=== PATIENT | female | born 1955 | race Caucasian/White ===

== ENCOUNTER 2023-06-08 21:27 | Emergency (ER) | payer MEDICARE, OTHER ==
[2023-06-08] MEDS ORDERED: Aspirin 81 MG Tab.Chew PO ONE (21:37)
[2023-06-08] MEDS ORDERED: Sodium Chloride 0.9% 10 ML Syringe FLUSH PRN (21:37)
[2023-06-08] MEDS ORDERED: Ondansetron 4 MG/2 ML SDV IVPUSH ONE (21:56)
[2023-06-08 22:17] LABS: BASOPHILS PERCENT AUTO 0.5 % (0.0-1.0); EOSINOPHILS ABSOLUTE AUTO 0.1 K/mm3 (0.0-0.4); EOSINOPHILS PERCENT AUTO 1.1 % (0.0-6.0); HEMATOCRIT 43.1 % (37.0-47.0); HEMOGLOBIN 14.2 gm/dl (12.0-16.0); IMMATURE GRAN ABSOLUTE AUTO 0.02 K/mm3 (0.00-0.05); IMMATURE GRAN PERCENT AUTO 0.3 % (0.0-0.4); LYMPHOCYTES ABSOLUTE AUTO 1.7 K/mm3 (1.0-4.8); LYMPHOCYTES PERCENT AUTO 21.8 % (24.0-44.0); MEAN CORPUSCULAR HEMOGLOBIN 28.2 pg (28.0-32.0); MEAN CORPUSCULAR HGB CONC 32.9 g/dl (32.0-36.0); MEAN CORPUSCULAR VOLUME 85.5 fl (83.0-99.0); MEAN PLATELET VOLUME 10.2 fl (9.4-12.3); MONOCYTES ABSOLUTE AUTO 0.5 K/mm3 (0.0-0.8); MONOCYTES PERCENT AUTO 6.6 % (0.0-8.0); NEUTROPHILS ABSOLUTE AUTO 5.5 K/mm3 (1.8-7.7); NEUTROPHILS PERCENT AUTO 69.7 % (41.0-71.0); PLATELET COUNT,PLT 229 K/mm3 (150-400); RED BLOOD CELL COUNT 5.04 M/mm3 (4.10-5.30); WHITE BLOOD CELL COUNT,WBC 7.89 K/mm3 (3.9-11.3)
[2023-06-08 22:39] LABS: PROTHROMBIN TIME 10.7 SECONDS (9.7-12.0)
[2023-06-08 22:50] LABS: A/G RATIO 0.8 (1-2); ALBUMIN 3.7 g/dl (3.4-5.0); ANION GAP 17.2 (5-15); BILIRUBIN TOTAL 0.7 mg/dL (0.2-1.0); BUN/CREATININE RATIO 21.3 (14-18); CALCIUM 9.4 mg/dL (8.5-10.1); CREATININE 0.8 mg/dL (0.55-1.02); EST CRCL DRUG DOSING (CG) 64.54 mL/min; MAGNESIUM 1.9 mg/dL (1.8-2.4); POTASSIUM,K 3.2 mEq/L (3.5-5.1); PROTEIN TOTAL,TP 8.2 g/dl (6.4-8.2); TSH 2.029 uIU/mL (0.358-3.74)
[2023-06-08 22:54] LABS: D-DIMER QUANTITATIVE 2.24 mg/L (0.19-0.50)
[2023-06-08] MEDS ORDERED: HYDROmorphone 0.5 MG/0.5 ML Syringe IVPUSH ONE (23:27)
[2023-06-08] MEDS ORDERED: Naloxone 0.4 MG/ML SDV IVPUSH PRN (23:27)
[2023-06-09] MEDS ORDERED: Iopamidol 755 Mg/ML 100 ML Bottle IVPUSH ONE (00:21)
[2023-06-09] MEDS ORDERED: Ondansetron 4 MG/2 ML SDV IVPUSH ONE (01:02)
[2023-06-09 01:40] LABS: CORONAVIRUS COVID-19 NAA NEGATIVE (NEGATIVE); INFLUENZA A NAA NEGATIVE (NEGATIVE); RESPIRATORY SYNCYTIAL VIR NAA NEGATIVE (NEGATIVE)
[2023-06-09] MEDS ORDERED: fentaNYL 100 MCG/2 ML SDV IVPUSH ONE (01:40)
[2023-06-09 02:33] VITALS: BP 116/40; PULSE 108
== END 2023-06-09 02:25 ==
LOC: JD.ED 21:27
DX: I60.9 Nontraumatic subarachnoid hemorrhage, unspecified (principal); I67.1 Cerebral aneurysm, nonruptured; I10 Essential (primary) hypertension; Z88.5 Allergy status to narcotic agent; Z20.822 Contact with and (suspected) exposure to COVID-19
CPT/HCPCS: 0241U; 36415; 70496; 70498; 71045; 71275; 80053; 83735; 83880; 84443; 84484; 85025; 85379; 85610; 87040; 87154; 93005; 96374; 96375; 96376; 99285; A9270; J1170; J2405; J3010; Q9967; 93010